=== PATIENT | male | born 1940 | race Asian ===

== ENCOUNTER 2024-03-23 09:13 | Emergency (ER) | payer MEDICARE, MEDICAID ==
[~2024-03-23] VITALS: Ht 172.7 cm; Wt 75.0 kg
[2024-03-23 09:18] VITALS: O2SAT 98
[2024-03-23] MEDS: ACETAMINOPHEN 500MG TABLET PO ONE (12:21)
[2024-03-23] MEDS ORDERED: ACET-2708 MT (12:58)
[2024-03-23 13:01] VITALS: BP 132/77; PULSE 68; RESP 12; TEMP 98.9
== END 2024-03-23 13:24 | disposition home or self-care (01) ==
LOC: ER 09:13
DX: S60.222A Contusion of left hand, initial encounter (principal); S13.4XXA Sprain of ligaments of cervical spine, initial encounter; S09.90XA Unspecified injury of head, initial encounter; I10 Essential (primary) hypertension; Z98.890 Other specified postprocedural states; W18.30XA Fall on same level, unspecified, initial encounter; Y93.89 Activity, other specified; Y92.89 Other specified places as the place of occurrence of the external cause; Y99.8 Other external cause status
CPT/HCPCS: 73090; 73120; 99284